=== PATIENT | female | born 1975 | race Caucasian/White ===

== ENCOUNTER → 2019-06-20 09:02 | Outpatient (CLI) | payer OTHER, SELFPAY ==
--- NOTE | ~2019-06-20 | US_ITS ---
EXAMINATION: US pelvic complete w TV DATE: 06/20/2019 09:30 INDICATION: Right lower quadrant pain. Palpable area. Irregular periods. Comparison:No prior studies for comparison. TECHNIQUE: Multiple transabdominal and endovaginal sonographic images of the pelvis performed. FINDINGS: The uterus measures 8.8 x 4.3 x 4.4 cm. The endometrial complex measures 3 mm. The right ovary measures 1.7 x 1.3 x 1.2 cm and the left ovary measures 2.9 x 3.5 x 3.7 cm. There is a 2.9 cm left ovarian cyst. There is no free fluid in the pelvis. There are no abnormal masses seen on either side. IMPRESSION: 1. 2.9 cm left ovarian cyst. Reviewed, dictated and finalized at location A.
== END ==
PROVIDERS: Visit Provider Advanced Practice Midwife
DX: R19.09 Other intra-abdominal and pelvic swelling, mass and lump (principal); R10.2 Pelvic and perineal pain
CPT/HCPCS: 76830; 76856

== ENCOUNTER → 2019-06-25 13:44 | Outpatient (CLI) | payer OTHER, SELFPAY ==
--- NOTE | ~2019-06-25 | US_ITS ---
EXAMINATION: US soft tissue groin RT DATE: 06/25/2019 13:56 INDICATION: Right groin mass TECHNIQUE: Multiple grayscale and Doppler ultrasound images of the right groin were obtained. COMPARISON: None FINDINGS/IMPRESSION: Couple abnormality corresponds to a 3.5 x 1.1 x 1.3 cm right inguinal lymph node comprised primarily of a large central fatty hilum with maximal cortical thickening of up to 4 mm which remains within no rmal limits, likely reactive. Reviewed, dictated and finalized at location A.
== END ==
PROVIDERS: Visit Provider Advanced Practice Midwife
DX: R19.09 Other intra-abdominal and pelvic swelling, mass and lump (principal); R93.5 Abnormal findings on diagnostic imaging of other abdominal regions, including retroperitoneum
CPT/HCPCS: 76882

== ENCOUNTER → 2019-07-03 13:01 | Outpatient (CLI) | payer OTHER, SELFPAY ==
--- NOTE | ~2019-07-03 | CT_ITS ---
EXAMINATION: CT abdomen pelvis wo/w con DATE: 07/03/2019 13:47 INDICATION: Enlarged lymph noted with right inguinal lump TECHNIQUE: Computed tomography (CT) of the abdomen and pelvis was performed without and with 100 mL O mnipaque-350 intravenous contrast. Automated exposure control and iterative reconstruction technique were employed. The dose-length product was 1050.41 mGy-cm. COMPARISON: None FINDINGS: Small calcified nodules in the left lower lobe consistent with old granulomatous disease. Bilateral l ower lungs are otherwise clear with no pneumonia or other pulmonary infiltrates, pulmonary edema or p leural effusion. Heart size is normal. No pericardial effusion. Liver, gallbladder, spleen, pancreas, bilateral adrenal glands and right kidney are normal. No nephrolithiasis. 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 Normal bladder and antev erted uterus. Bilateral ovarian cysts/follicles. Likely tubal ligation clip in the region of the left broad ligament. No clip identified along the right broad ligament with a second likely displaced cli p positioned in the peritoneal space anterior to the left ovary. Bowels including the appendix are no rmal. Tiny fat-containing umbilical hernia. No inguinal hernia. No pathologically enlarged abdominal, pelvic or inguinal lymphadenopathy. Vascular structures are unremarkable. No abnormal masses or flui d collections identified at the left inguinal region. Mild lumbar spondylosis. IMPRESSION: 1. No abdominal, pelvic or inguinal lymphadenopathy or other abnormal masses or fluid collections in the right inguinal region. 2. 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 3. Likely displaced right tubal ligation clip. Reviewed, dictated and finalized at location B.
== END ==
PROVIDERS: Visit Provider Advanced Practice Midwife
DX: R59.9 Enlarged lymph nodes, unspecified (principal)
CPT/HCPCS: 74178; Q9967

== ENCOUNTER → 2021-02-13 11:05 | Outpatient (CLI) | payer SELFPAY ==
--- NOTE | ~2021-02-13 | CT_ITS ---
EXAMINATION:CT diagnostic chest wo con DATE: 02/13/2021 11:28 INDICATION: Solitary pulmonary nodule. TECHNIQUE: Computed tomography (CT) of the chest was performed without intravenous contrast. Automate d exposure control and iterative reconstruction technique were employed. The dose-length product (DLP ) was 153.44 mGy-cm. COMPARISON: CT abdomen and pelvis 07/03/2019 FINDINGS: Calcified bilateral lung nodules and calcified hilar and mediastinal lymph nodes are consis tent with old granulomatous disease. No pleural effusion. The heart size is normal. No pericardial ef fusion. There is mild thoracic spondylosis. IMPRESSION: 1. No significant lung disease. Reviewed, dictated and finalized at location A. K HOP
== END ==
PROVIDERS: PCP Nurse Practitioner; Visit Provider Nurse Practitioner
DX: J98.4 Other disorders of lung (principal)
CPT/HCPCS: 71250